=== PATIENT | female | born 1975 | race Caucasian/White ===

== ENCOUNTER 2018-12-12 14:36 | Emergency (ER) | payer OTHER ==
[2018-12-12 14:47] VITALS: BP 152/91
--- NOTE | 2018-12-12 15:13 | ED ---
Throat Pain/Nasal Congestion - HPI Summary HPI Summary: 42 yr old with left ear pain, onset three days ago, and over a day of sore throat mostly on the left side. No drooling, no stridor. No fever or chills. Her pain is moderate. No change in voice. - History of Current Complaint Chief Complaint: UCEar Time Seen by Provider: 12/12/18 14:53 - Allergies/Home Medications Allergies/Adverse Reactions: Allergies Allergy/AdvReac Type Severity Reaction Status Date / Time No Known Allergies Allergy Verified 12/12/18 14:47 Home Medications: Home Medications Lisinopril TAB* [Prinivil TAB 5 MG*] 2 tab PO DAILY 12/12/18 [History Confirmed 12/12/18] PMH/Surg Hx/FS Hx/Imm Hx Endocrine/Hematology History: Reports: Hx Thyroid Disease, Hx Anemia Denies: Hx Diabetes Cardiovascular History: Reports: Hx Hypertension Respiratory History: Reports: Hx Seasonal Allergies Denies: Hx Asthma, Hx Chronic Obstructive Pulmonary Disease (COPD) GI History: Denies: Hx Ulcer Musculoskeletal History: Reports: Hx Back Problems Neurological History: Reports: Other Neuro Impairments/Disorders - PAIN CLINIC PATIENT Psychiatric History: Reports: Hx Anxiety - Situational - Surgical History Surgery Procedure, Year, and Place: Tubal Ligation 1999 [place] [facility] [place] Infectious Disease History: No Infectious Disease History: Denies: Hx Hepatitis, Hx Human Immunodeficiency Virus (HIV), Traveled Outside the [place] in Last 30 Days - Family History Known Family History: Positive: Hypertension - Social History Occupation: Employed Full-time Lives: With Family Alcohol Use: Occasionally Substance Use Type: Reports: None Smoking Status (MU): Former Smoker Type: Cigarettes Amount Used/How Often: 1-2 cugarettes per week Have You Smoked in the Last Year: Yes Review of Systems Constitutional: Negative Positive: Sore Throat, Ear Ache All Other Systems Reviewed And Are Negative: Yes Physical Exam Triage Information Reviewed: Yes Vital Signs On Initial Exam: Initial Vitals Temp Pulse Resp BP Pulse Ox 98.8 F 87 16 152/91 100 12/12/18 14:41 12/12/18 14:41 12/12/18 14:41 12/12/18 14:41 12/12/18 14:41 Vital Signs Reviewed: Yes Appearance: Positive: Well-Appearing, No Pain Distress Skin: Positive: Warm, Skin Color Reflects Adequate Perfusion Head/Face: Positive: Normal Head/Face Inspection Eyes: Positive: EOMI, QUIN ENT: Positive: Normal ENT inspection, Pharyngeal erythema, TMs normal, Uvula midline, Other - her voice is clear. Negative: Nasal congestion, Nasal drainage , Tonsillar swelling, Tonsillar exudate, Trismus, Muffled voice, Hoarse voice Neck: Positive: Nontender Respiratory/Lung Sounds: Positive: Clear to Auscultation, Breath Sounds Present Cardiovascular: Positive: RRR. Negative: Murmur Abdomen Description: Negative: Distended Musculoskeletal: Positive: Strength/ROM Intact Neurological: Positive: Sensory/Motor Intact, Alert, Oriented to Person Place, Time, CN Intact II-III Psychiatric: Positive: Normal Diagnostics - Vital Signs Vital Signs Temp Pulse Resp BP Pulse Ox 12/12/18 14:41 98.8 F 87 16 152/91 100 - Laboratory Lab Statement: Any lab studies that have been ordered have been reviewed, and results considered in the medical decision making process. EENT Course/Dx - Course Course Of Treatment: 42 yr old with pharyngitis. DC home on Amox. Rapid strep negative. The patient feels strongly she should be covered with antibiotic, and follow up with ENT. Script written, and a script for diflucan for possible yeast after antibiotics is written. FU with ENT and also PMD for BP recheck. - Diagnoses Provider Diagnoses: Pharyngitis, Hypertension Discharge - Sign-Out/Discharge Documenting (check all that apply): Patient Departure All imaging exams completed and their final reports reviewed: No Studies - Discharge Plan Condition: Good Disposition: HOME Prescriptions: Amoxicillin PO (*) [Amoxicillin 500 MG CAP*] 500 mg PO TID #30 cap Fluconazole 150 MG TAB* [Diflucan 150 MG TAB*] 150 mg PO ONCE #1 tablet Patient Education Materials: Pharyngitis (ED), Hypertension (ED) Referrals: Crystal Oconnell MD [Primary Care Provider] - 2 Days Aguilar Purvis MD [Medical Doctor] - 2 Days - Billing Disposition and Condition Condition: GOOD Disposition: Home
== END 2018-12-12 15:42 | disposition home or self-care (01) ==
LOC: UCEAST 14:36
DX: H92.02 Otalgia, left ear (principal); J02.9 Acute pharyngitis, unspecified; I10 Essential (primary) hypertension; E07.9 Disorder of thyroid, unspecified; D64.9 Anemia, unspecified; Z87.891 Personal history of nicotine dependence
CPT/HCPCS: 87651; 99212; G0463